=== PATIENT | male | born 1950 | race Caucasian/White ===

== ENCOUNTER 2019-01-04 08:38 | Outpatient (CLI) | payer MEDICARE, OTHER ==
--- NOTE | 2019-01-04 12:15 | Ultrasound Report ---
Reason: ENCOUNTER FOR SCREENING FOR CARDIOVASCULAR DISORDE Procedure Date: 01/04/2019 Accession Number: [id number] / [id number] Procedure: US - Aorta Screening CPT Code: FULL RESULT: EXAM: AORTIC DOPPLER ULTRASOUND EXAM DATE: 01/04/2019 10:12 AM. CLINICAL HISTORY: Encounter for screening for cardiovascular disorder. COMPARISON: None. TECHNIQUE: Real-time sonographic imaging of retroperitoneal vascular structures, including color-flow, Doppler flow and spectral analysis was performed by the plater apprentice. Multiple client services representative static images were saved for review. FINDINGS: Aorta: The abdominal aorta was adequately visualized. No evidence for abdominal aortic aneurysm. Note is made of focal atherosclerotic disease predominantly in the distal aorta. Aorta: Proximal: Sagittal AP: 2.3 cm. Mid: Transverse: 2.3 x 2.2 cm. Distal: Transverse: 1.9 x 1.8 cm. Caliber WNL: Yes. Plaque visualized: Yes. Iliacs: Right Iliac: Transverse: 0.9 x 0.9 cm. Left Iliac: Transverse: 0.9 x 0.8 cm. Iliac Vessels: The visualized proximal common iliac arteries are normal in caliber. Other: None. IMPRESSION: Atherosclerotic disease. No abdominal aneurysm. [facility]
== END 2019-01-04 08:39 | disposition home or self-care (01) ==
LOC: DI 08:38
PROVIDERS: ATTEND Internal Medicine
DX: Z13.6 Encounter for screening for cardiovascular disorders (principal); I70.0 Atherosclerosis of aorta
CPT/HCPCS: 76706